=== PATIENT | female | born 1945 | race Caucasian/White ===

== ENCOUNTER → 2016-10-30 16:49 | Outpatient (CLI) | payer MEDICARE ==
[2015-09-07 12:46] VITALS: BMI 39.6
[~2016-10-30 16:49] MED LIST: CELEXA40 MG PO; CLORPRES PO; COREG25 MG PO; COZAAR50 MG PO; GLIPIZIDE10 MG PO; GLUCOPHAGE1000 MG PO; LASIX40 MG PO; LEVEMIR100 U/M1 INJ; LONITEN10 MG PO; NORVASC10 MG PO
[2016-10-30 20:40] LABS: ANION GAP 14.8 mmol/L (8-16); CALCIUM 9.5 mg/dL (8.5-10.1); CARBON DIOXIDE 30.7 mmol/L (21.0-32.0); CREATININE - SERUM 1.3 mg/dL (0.6-1.3); POTASSIUM - SERUM 3.5 mmol/L (3.5-5.1)
== END | disposition home or self-care (01) ==
LOC: D.LABREF 16:49
PROVIDERS: Internal Medicine Interventional Cardiology
DX: I10 Essential (primary) hypertension (principal); R60.9 Edema, unspecified

== ENCOUNTER 2017-01-13 11:24 | Emergency (ER) | payer MEDICARE, OTHER ==
[2015-09-07 12:46] VITALS: BMI 39.6
[2017-01-13 12:22] LABS: BASOPHILS 0.3 % (0-2); HEMATOCRIT 36.4 % (36.0-48.0); HEMOGLOBIN 12.2 g/dL (12-16); IMMATURE GRANULOCYTES 0.3 % (0-5); LYMPHOCYTES 14.9 % (15-50); MCH 28.4 pg (26.0-34.0); MCHC 33.5 g/dL (31.0-37.0); MCV 84.8 fL (80.0-100.0); MEAN PLATELET VOLUME 9.4 fL (7.4-10.4); MONOCYTES 8.1 % (2-11); NEUTROPHILS 72.4 % (40-80); PLATELET COUNT 257 10x3/uL (130-400); RBC 4.29 10x6/uL (4.00-5.40)
[2017-01-13 12:36] LABS: ALBUMIN 3.7 g/dL (3.4-5.0); ANION GAP 12.3 mmol/L (8-16); BILIRUBIN - TOTAL 0.42 mg/dL (0.2-1.3); CALCIUM 8.8 mg/dL (8.5-10.1); POTASSIUM - SERUM 3.3 mmol/L (3.5-5.1); PROTEIN - SERUM 7.3 g/dL (6.4-8.2)
[2017-01-13 12:49] LABS: APPEARANCE HAZY (CLEAR); BILIRUBIN NEGATIVE (NEGATIVE); COLOR YELLOW (YELLOW); GLUCOSE 250 mg/dL (NEGATIVE); KETONE NEGATIVE (NEGATIVE); LEUKOCYTE ESTERASE 1+ (NEGATIVE); NITRITE NEGATIVE (NEGATIVE); PROTEIN NEGATIVE (NEGATIVE); SPECIFIC GRAVITY 1.015 (1.005-1.020); UROBILINOGEN NORMAL (NORMAL)
[2017-01-13 12:51] LABS: BACTERIA FEW /hpf (NONE SEEN); MUCUS <1+ /lpf (NONE SEEN); RED CELLS - URINE OCC /hpf (0-5); YEAST OCC /hpf (NONE SEEN)
== END 2017-01-13 14:28 | disposition home or self-care (01) ==
LOC: D.ER 11:24
PROVIDERS: Emergency Medicine; Nurse Practitioner Acute Care
DX: N39.0 Urinary tract infection, site not specified (principal); E86.0 Dehydration; I10 Essential (primary) hypertension; I25.10 Atherosclerotic heart disease of native coronary artery without angina pectoris; E03.9 Hypothyroidism, unspecified; E11.9 Type 2 diabetes mellitus without complications; Z79.4 Long term (current) use of insulin

== ENCOUNTER → 2018-09-11 17:09 | Outpatient (CLI) | payer MEDICARE, OTHER ==
[2015-09-07 12:46] VITALS: BMI 39.6
== END | disposition home or self-care (01) ==
LOC: D.MAMMO 11:30
DX: Z12.31 Encounter for screening mammogram for malignant neoplasm of breast (principal)

== ENCOUNTER → 2018-10-15 17:04 | Outpatient (CLI) | payer MEDICARE, OTHER ==
[2015-09-07 12:46] VITALS: BMI 39.6
== END | disposition home or self-care (01) ==
LOC: D.MAMMO 13:30
DX: R92.8 Other abnormal and inconclusive findings on diagnostic imaging of breast (principal)

== ENCOUNTER → 2018-12-22 09:17 | Outpatient (CLI) | payer MEDICARE, OTHER ==
[2015-09-07 12:46] VITALS: BMI 39.6
--- NOTE | 2018-12-24 13:17 | EC ---
PATIENT:AMINA MCKEON DATE OF SERVICE: 12/22/18 SEX: F MEDICAL RECORD: [id number] DATE OF : 47 LOCATION:[facility] AGE OF PATIENT: 73 ADMISSION DATE: 12/22/18 REFERRING PHYSICIAN: INTERPRETING PHYSICIAN: STEPHANI REYES MD ECHOCARDIOGRAM REPORT ECHO CHARGES 4 ECHO COMPLETE Date: 12/22/18 CLINICAL DIAGNOSIS: HTN ECHOCARDIOGRAPHIC MEASUREMENTS (adult normal given) AC root (d.<3.7cm) 2.8 cm LV Septum d (<1.2 cm> 1.3 cm Valve Excursion 1.0 cm LV Septum (systole) 1.9 cm Left Atria (s.<4.0cm> 4.5 cm LVPW d(<1.2cm) 1.2 cm RV (d.<2.3cm) 3.0 cm LVPW (sytole) 1.8 cm LV diastole(<5.6CM) 4.6 cm MV E-F(>70mm/sec) cm LV systole 2.0 cm LVOT Diameter 1.5 cm MV exc.(>10mm) cm Est.ejection fraction (50-75%) % DOPPLER: LVIT cm/sec A 134 cm/sec E 170 cm/sec LA cm/sec RVSP 23.3 mmHg LVOT 120 cm/sec AOP1/2T m/s Asc. Ao 222 cm/sec RVOT 69.0 cm/sec RA cm/sec PA 106 cm/sec AV Gradient Peak 20.0 mmHg AV Mean 8.6 mmHg AV Area 1.0 cm MV Gradient Peak 14.3 mmHg MV Mean 6.0 mmHg MV Area cm COMMENTS: OP - HC Poultry Inspector: Vy PATRICIAOE Screw Machine Repairer: 3 Dr. Kwan TAPE# PACS Pericardial Effusion N DATE OF SERVICE: 12/22/2018 Adequate 2-D echo, color-flow and spectral Doppler, and M-mode. Mild LVH. LV internal dimensions are normal. Wall motion is normal. EF is equal to 55%. Aortic valve is calcified with minimal restriction of leaflet motion. Peak gradient is 20 mmHg, putting this in very mild range. Left atrium is dilated at 4.5 cm. Mitral valve shows no prolapse. Mild MR. Right-sided chambers are grossly normal. Trace TR. ECHOCARDIOGRAM REPORT [id number] AMINA MCKEON TRANSINT:[id number] Voice Confirmation ID: [id number] DOCUMENT ID: [id number] STEPHANI REYES MD at 1317 CC: [id number] DICTATION DATE: 12/23/18 1321 EXECUTIVE VICE PRESIDENT OF SALES: 12/23/18 1541 DEP CLI 12/22/18 [facility] [address] [id number]
== END | disposition home or self-care (01) ==
LOC: D.HCCARDIO 09:17
PROVIDERS: ATTEND Internal Medicine Interventional Cardiology
DX: I10 Essential (primary) hypertension (principal)